=== PATIENT | female | born 1990 | race Caucasian/White ===

== ENCOUNTER 2016-11-20 22:39 | Emergency (ER) | payer BC, OTHER ==
[~2016-11-20] VITALS: Ht 172.7 cm; Wt 70.0 kg
[2016-11-20 22:40] VITALS: TEMP 36.8; Ht 172.7 cm; Wt 70.0 kg
[2016-11-20] MEDS ORDERED: ETONMIS VAGRING (22:51)
[2016-11-21 00:39] VITALS: BP 114/82; PULSE 96; O2SAT 100
--- NOTE | 2016-11-21 03:06 | EMERGENCY ROOM VISIT NOTE ---
History Report prepared by Cornelia: Guillermo Koch Under the Supervision of: Dr. Ty Hayward M.D. 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 The patient rates her current pain mild in severity. The patient was at the [employer] concert in the [facility] when she went to the bathroom. The patient was in the stall for a while when the EMS was called on her. The patient does not know why EMS was called. Supposedly, she was told that she hit her head on the sink, but she does not remember this. She thinks she hit her head on the stall door. She currently has head pain over her left eyebrow. The last time she had something to eat was 6 hours ago. Patient denies fevers, chills, diaphoresis, visual changes, neck pain, chest pain, breathing difficulties, nausea, vomiting, abdominal pain, back pain, melena, hematochezia, urinary symptoms, numbness, weakness, lymphadenopathy, rash, or other complaints. Her last menstrual period was two weeks ago. She states that she is not . Source of History: patient Onset: PRODUCT SUPPORT CONSULTANT Position: head Symptom Intensity: mild Quality: ache Timing: constant Note: She denies any other symptoms. Review of Systems See HPI for pertinent positives and negatives. A total of ten systems were reviewed and were otherwise negative. Past Medical & Surgical Medical Problems: (1) No Known Active Medical Problems Family History Heart disease Hyperlipidemia Stroke Social History Smoking Status: Never Smoker Smokeless Tobacco Use: No Alcohol Use: occasionally Drug Use: none Marital Status: single Occupation Status: employed Current/Historical Medications Scheduled Etonogestrel/Ethinyl Estradiol (Nuvaring), 1 EA VAGRING MONTHLY Allergies Coded Allergies: Amoxicillin (Verified Allergy, Unknown, UNKNOWN, 11/20/16) Clindamycin (Verified Allergy, Unknown, UNKNOWN, 11/20/16) Uncoded Allergies: SULFA DRUGS (Allergy, Unknown, UNKNOWN, 11/20/16) Physical Exam Vital Signs Date Time Temp Pulse Resp B/P Pulse Ox O2 Delivery O2 Flow Rate FiO2 11/21/16 00:39 96 18 114/82 100 Room Air 11/20/16 22:40 36.8 107 20 157/108 96 Room Air Physical Exam GENERAL: Mildly intoxicated, awake, well appearing, no distress HENT: Normocephalic. Small contusion to the left eyebrow. Oropharynx unremarkable. EYES: PERRL. Erythematous conjunctiva. Sclera non-icteric. NECK: Supple. No nuchal rigidity. FROM. RESPIRATORY: CTA CARDIAC: RRR GI/ABDOMEN: Soft, non distended. No tenderness to palpation. No rebound or guarding. No masses. RECTAL: Deferred. MUSCULOSKELETAL: No edema. No discoloration. Gross motor strength 5/5 bilaterally. NEURO: Altered sensorium. No sensory or motor deficits noted. Speech slurred. SKIN: No rash or jaundice noted. LYMPH: No adenopathy. Medical Decision & Procedures ER Provider Diagnostic Interpretation: X ray results as stated below per my interpretation and radiologist interpretation. Other radiology results as stated below per my review and radiologist interpretation CT HEAD: No ICH, mass effect or edema. No skull fracture. Radiologist: Ishmael Costello MD ED Course 2256: The patient was evaluated in room C6. A complete history and physical exam was performed. 0047: I reevaluated the patient. She is feeling better. Her intoxication is cleared. Discussed results and discharge instructions: She verbalized understanding and agreement. The patient is ready for discharge. Medical Decision Triage Nursing notes reviewed and agree them. Additional history obtained from the patient's significant other. After evaluation additional history was also obtained from Dr. Kmi, medical services assistant for EMS who was on scene. The patient's significant other reportedly came to medical looking for the patient as he did not hear from her for about an hour at the [employer]. Medical and police began to search the concert venue and found her passed out in a bathroom stall. She had a hematoma and contusion on the left eyebrow. It appeared that the patient did hit her head in the bathroom stall. She had a breathalyzer and a 0.16. The patient's history was concerning for traumatic head injury Differential diagnosis: Etiologies such as contusion, alcohol intoxication, fracture, subdural hematoma , concussion, epidural hematoma, intraparenchymal hemorrhage, as well as other traumatic pathologies were entertained. Physical examination findings: As above. ER treatment provided: Patient declined treatment. She was amenable to imaging. On reassessment the patient felt better. Diagnostics interpreted by me: Imaging studies: CT scan as above It appears the patient has a concussion. I discussed the risks and the benefits of CT scanning. The patient has a mild concussion based upon the history. Her intoxication has cleared. The patient was awake and alert in her time. Frankly, she was agitated about the whole situation but was cooperative with the physical and testing. I discussed conservative management with her. If she worsens or develops any significant signs for delayed bleeding she will come back to the emergency department for reevaluation.I gave my usual and customary discussion regarding this issue. By the evaluation outlined above emergent etiologies such as fracture, subdural hematoma, epidural hematoma, intraparenchymal hemorrhage, as well as others were deemed relatively unlikely. The patient and significant other were informed about the findings as listed above. All questions were answered and they were pleased with the treatment. Return instructions were outlined and the patient was discharged in stable condition. Referral: The patient was referred back to her PCP primary care physician for follow-up for a recheck of the current condition. The chart was completed utilizing [employer] Speech voice recognition software. Grammatical errors, random word insertions, pronoun errors, and incomplete sentences are an occasional consequence of this system due to software limitations, ambient noise, and hardware issues. Any formal questions or concerns about the content, text, or information contained within the body of this dictation should be directly addressed to the physician for clarification. Impression Primary Impression: Closed head injury Additional Impression: Alcohol intoxication Scribe Attestation The scribe's documentation has been prepared under my direction and personally reviewed by me in its entirety. I confirm that the note above accurately reflects all work, treatment, procedures, and medical decision making performed by me. Departure Information Dispostion Home / Self-Care Referrals No Doctor, Assigned (PCP) Forms HOME CARE DOCUMENTATION FORM, IMPORTANT VISIT INFORMATION Patient Instructions My [facility] [place] Additional Instructions Do not drive or work for 24 hours. Eat a healthy diet and drink plenty of fluids. Consume alcohol only in moderation. CONCUSSION DISCHARGE INSTRUCTIONS: What is a concussion? A concussion is a disturbance in the function of the brain caused by a direct or indirect force to the head. It results in a variety of symptoms like: headache, balance problems, nausea, vomiting, vision problems, hearing problems/ringing, drowsiness, irritability, and/or difficulty concentrating or remembering. A concussion may, or may not involve memory problems or loss of consciousness. Concussion instructions: Stop and stay away from ALL physical activity until you are symptom free from: Headaches Balance problems Feeling "dinged" Poor concentration Drowsy Fatigued Rest and avoid strenuous activities for the next few days. Get 8-10 hours of sleep per night. Limit activities that involve significant concentration and attention during this time to speed your recovery. This includes studying, attending school, playing video games, and heavy reading. Your brain needs to rest. Eat right and eat often. Now is the time to feed your brain. Well balanced diets that avoid high sugar foods, sodas, caffeine, etc. are better for your brain. NO ALCOHOL OR DRUGS! Avoid stimulants like caffeine, red bull, mountain dew, "energy" drinks, etc. Tylenol(acetaminophen) may be used for headaches. Use 1000mg every six hours as needed. Avoid using more than 4000mg in a 24 hour period. Avoid anti-inflammatories such as aspirin, ibuprofen, Alleve, naprosyn, Motrin, or Advil as these can interfere with blood clotting and lead to bleeding within the brain after a traumatic injury. Stepwise return to sports for athletes or working out: You may progress to the next step after 24 hours if you are symptom free. If you experience symptoms, you must return to the previous stage and try again after another 24 hours of rest and being symptom free. Best case scenario is full contact game play in 7 days from the time of injury. Remember repeat concussions are worse than the first. Time invested in recovery will allow for better performance and less downtime in the future. If you have any questions see your stone layout marker or make an appointment to see one of the team physicians. 1) No activity, complete rest for 3 days. Once all symptoms have resolved, report to the team physician or stone layout marker to be cleared to progress to step 2. 2) Start light aerobic exercise, such as walking or stationary cycling, no resistance training permitted.(Day 4) 3) Sport specific exercises. Add light resistance slowly. Go slow to allow your body to readapt. (Day 5) 4) Non-contact full speed practice. (Day 6) 5) Full contact practice and/or game play.(Day 7) FOLLOW UP INSTRUCTIONS: You should have a follow up with your family doctor in 3-5 days regarding your injury. Problems could arise over the next 24 to 48 hours. You should not be left alone and MUST go to the hospital immediately if you: -Have a headache that suddenly gets worse. -Are very drowsy or cannot be woken up from sleep. -Can't recognize people or places. -Have repeated vomiting. -Behave unusually, seemed confused, or start acting irritable. -Have a seizure (arms and legs start jerking uncontrollably). -Have weak or numb arms or legs. -Are unsteady on your feet -Experience slurred speech or difficulty speaking. Problem Qualifiers Primary Impression: Closed head injury Encounter type: initial encounter Qualified Codes: S09.90XA - Unspecified injury of head, initial encounter Additional Impression: Alcohol intoxication Complication of substance-induced condition: uncomplicated Qualified Codes: F10.120 - Alcohol abuse with intoxication, uncomplicated
--- NOTE | 2016-11-21 07:07 | DIAGNOSTIC IMAGING REPORT ---
CT OF THE HEAD WITHOUT CONTRAST CLINICAL HISTORY: Fall, left eyebrow contusion. COMPARISON STUDY: MRI of the brain April 21, 2012. CT DOSE: 491.41 mGy.cm TECHNIQUE: Helical axial images of the head were obtained without IV contrast. Automated exposure control was utilized for the study. FINDINGS: No acute intracranial hemorrhage, midline shift or mass effect is present. Ventricular system is normal. Basilar cisterns are patent. There are no extra-axial collections. Lang-white differentiation is maintained. There is no calvarial fracture. Visualized portions of the sinuses and the mastoid air cells are clear. IMPRESSION: 1. No acute intracranial findings. 2. No calvarial fracture. Electronically signed by: Phani Lucero M.D. 11/21/2016 7:05 AM Dictated Date/Time: 11/21/2016 7:03 AM
== END 2016-11-21 00:49 | disposition home or self-care (01) ==
LOC: EDBD 22:39 → C.EDC 22:39
DX: S09.90XA Unspecified injury of head, initial encounter (principal); S00.93XA Contusion of unspecified part of head, initial encounter; W22.8XXA Striking against or struck by other objects, initial encounter; Y92.89 Other specified places as the place of occurrence of the external cause; F10.129 Alcohol abuse with intoxication, unspecified; Z88.1 Allergy status to other antibiotic agents; Z88.3 Allergy status to other anti-infective agents; Z82.49 Family history of ischemic heart disease and other diseases of the circulatory system; Z82.0 Family history of epilepsy and other diseases of the nervous system